=== PATIENT | male | born 1970 | race Caucasian/White ===

== ENCOUNTER 2017-11-14 11:26 | Emergency (ER) | payer SELFPAY | END 2017-11-14 12:35 | disposition home or self-care (01) | LOC: FTE 11:26 | DX: T24.131A Burn of first degree of right lower leg, initial encounter (principal); J45.909 Unspecified asthma, uncomplicated; X14.1XXA Other contact with hot air and other hot gases, initial encounter; Y92.9 Unspecified place or not applicable | CPT/HCPCS: 99283 ==